=== PATIENT | female | born 1990 | race Two or more races ===

== ENCOUNTER 2017-04-13 11:48 | Emergency (ER) | payer SELFPAY ==
[~2017-04-13] VITALS: Ht 154.9 cm; Wt 97.5 kg
[2017-04-13 12:20] VITALS: BP 109/61
--- NOTE | 2017-04-13 12:27 | RAD ---
Left foot, 3 views, 04/13/2017: History: Foot pain, injury No acute fracture or dislocation is identified. There is mild subcutaneous edema. IMPRESSION: No acute bony abnormality is detected.
--- NOTE | 2017-04-13 13:14 | PHYS DOC ---
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 She states that she slipped on the water on the floor. She states that she's been having pain in increased difficulty with moving the toes. She has not taken anything for the pain and discomfort. She denies any numbness or tingling into the toes. His that she has been having difficulty with ambulating as it hurts to bear weight. Review of Systems Review of Systems Constitutional: Denies fever or chills [] Eyes: Denies change in visual acuity, redness, or eye pain [] HENT: Denies nasal congestion or sore throat [] Respiratory: Denies cough or shortness of breath [] Cardiovascular: No additional information not addressed in HPI [] GI: Denies abdominal pain, nausea, vomiting, bloody stools or diarrhea [] : Denies dysuria or hematuria [] Musculoskeletal: Denies back pain. C/o left 3-5th toe pain Integument: Denies rash or skin lesions [] Neurologic: Denies headache, focal weakness or sensory changes [] Endocrine: Denies polyuria or polydipsia [] Allergies Allergies Allergies Coded Allergies Type Severity Reaction Last Updated Verified No Known Drug Allergies 04/13/17 No Physical Exam Physical Exam Constitutional: Well developed, well nourished, no acute distress, non-toxic appearance. [] HENT: Normocephalic, atraumatic, bilateral external ears normal, oropharynx moist, no oral exudates, nose normal. [] Eyes: PERRLA, EOMI, conjunctiva normal, no discharge. [] Neck: Normal range of motion, no tenderness, supple, no stridor. [] Cardiovascular:Heart rate regular rhythm, no murmur [] Lungs & Thorax: Bilateral breath sounds clear to auscultation [] Skin: Warm, dry, no erythema, no rash. [] Back: No tenderness Extremities: Left 3-5th toe tenderness, no cyanosis, no clubbing, ROM intact, no edema. Patient has good sensation to the toes. She is able to wiggle the toes with minimal difficulty. Pedal pulses 2+ posterior tibial pulse 2+. Neurologic: Alert and oriented X 3, normal motor function, normal sensory function, no focal deficits noted. [] Psychologic: Affect normal, judgement normal, mood normal. [] Current Patient Data Vital Signs Vital Signs Date Time Temp Pulse Resp B/P (MAP) Pulse Ox O2 Delivery O2 Flow Rate FiO2 04/13/17 12:20 98.3 73 16 98 Room Air 98.3 EKG EKG [] Radiology/Procedures Radiology/Procedures [][facility] [address] [place] [address] IMAGING REPORT Signed PATIENT: MILES SINGH ACCOUNT: [id number] : 1990 LOCATION: ER AGE: 26 SEX: F EXAM STATUS: REG ER ORD. PHYSICIAN: SUSANA GALVAN APRN REASON: pain to the 4-5 toes, hit on bathtub PROCEDURE: FOOT LEFT 3V Left foot, 3 views, 04/13/2017: History: Foot pain, injury No acute fracture or dislocation is identified. There is mild subcutaneous edema. IMPRESSION: No acute bony abnormality is detected. DICTATED and SIGNED BY: JD ARELLANO MD DATE: 04/13/17 1224 CC: SUSANA GALVAN APRN; NO PCP; NON,STAFF ~ Course & Med Decision Making Course & Med Decision Making Pertinent Labs and Imaging studies reviewed. (See chart for details) Patient will be placed in a postop shoe for comfort. Recommended ibuprofen for pain and discomfort ice packs on 20 minutes off 20 minutes several times a day elevation as much as possible. Recommended wearing a postop shoe for the next 3- 5 days. Signs symptoms to return back to emergency department been provided. Patient agrees with discharge instructions treatment regimens and follow-up recommendations. [] Dragon Disclaimer Dragon Disclaimer This electronic medical record was generated, in whole or in part, using a voice recognition dictation system. Departure Departure Impression: Primary Impression: Toe pain, left Disposition: 01 HOME, SELF-CARE Condition: STABLE Referrals: NO PCP (PCP) Patient Instructions: Toe Injuries and Amputations Additional Instructions: X-rays were negative for any fractures or dislocations. Ibuprofen for pain and discomfort. Wear the postop shoe for the next 3-5 days. Ice packs on 20 minutes off 20 minutes several times a day. Elevation as much as possible. Follow-up with your primary care physician as needed in the next week. Return back to emergency prior for signs and symptoms of become worse. SUSANA GALVAN APRN April 13, 2017 13:14
== END 2017-04-13 13:36 | disposition home or self-care (01) ==
LOC: ER 11:48
DX: M79.675 Pain in left toe(s) (principal); W01.0XXA Fall on same level from slipping, tripping and stumbling without subsequent striking against object, initial encounter; Y93.89 Activity, other specified; Y92.091 Bathroom in other non-institutional residence as the place of occurrence of the external cause; Y99.8 Other external cause status
CPT/HCPCS: 73630; 99284